=== PATIENT | male | born 1935 | race Caucasian/White ===

== ENCOUNTER 2017-07-11 18:08 | Emergency (ER) | payer MEDICARE ==
[2017-07-11 18:52] LABS: #Eosinphils 0.3 thou/uL (0.0-0.7); #Lymphocytes 1.2 thou/uL (1.20-3.40); #Monocytes 0.6 thou/uL (0.11-0.59); #Neutrophils 5.6 thou/uL (1.40-6.50); %Basophils 0.5 % (0.0-1.0); %Eosinophils 3.4 % (0.0-10.0); %Monocytes 7.7 % (0.0-10.0); %Neutrophils 72.4 % (42.0-75.0); Hemoglobin 11.3 g/dL (14.0-18.0); Mean Corpuscular HGB CONC 33.5 g/dL (32.0-36.0); Mean Corpuscular Hemoglobin 29.9 pg (27.0-31.0); Mean Corpuscular Volume 89.3 fl (80.0-94.0); Mean Platelet Volume 7.4 fL (7.4-10.4); Platelet Count 149 thou/uL (130-400); RBC Distribution Width 13.2 % (11.5-14.5); Red Blood Cell (RBC) Count 3.78 mill/uL (4.70-6.10); White Blood Cell (WBC) Count 7.7 thou/uL (4.8-10.8)
[2017-07-11 19:12] LABS: ALT (SGPT) 18 U/L (8-55); AST (SGOT) 20 U/L (5-34); Albumin 4.3 g/dL (3.4-4.8); Alkaline Phosphatase 43 U/L (40-150); Anion Gap 12 mmol/L (10-20); BUN (Urea Nitrogen) 21 mg/dL (8.4-25.7); Bilirubin, Total 0.6 mg/dL (0.2-1.2); CK (CPK) 246 U/L (30-200); Calc. Creatinine Clearance 0 mL/min (70-130); Calcium 10.1 mg/dL (7.8-10.44); Carbon Dioxide 26 mmol/L (23-31); Chloride 106 mmol/L (98-107); Estimated GFR-MDRD 42; Globulin 2.4 g/dL (2.4-3.5); Glucose 90 mg/dL (83-110); Potassium 4.1 mmol/L (3.5-5.1); Protein, Total 6.7 g/dL (5.8-8.1); Sodium 140 mmol/L (136-145)
[2017-07-11 19:16] LABS: Troponin I 0.021 ng/mL (< 0.028)
[2017-07-11] MEDS ORDERED: HYDROcodone/Acetaminophen 5/325 mg Tablet ONE (19:19)
[2017-07-11 19:21] LABS: CKMB 7.6 ng/mL (0-6.6)
--- NOTE | 2017-07-11 19:22 | CT ---
NONCONTRAST CT HEAD 07/11/17 HISTORY: Injury after a fall. Patient lost balance and fell on concrete. COMPARISON: None available. FINDINGS: There is cerebral volume loss. Ventricular system is normal in size, shape, and position for the degr ee of sulcal atrophy. Mild chronic small vessel ischemic changes are present. There is no evidence of acute cortical infarction, hemorrhage, mass effect or midline shift. The visualized paranasal sinuse s and mastoid air cells are clear. No calvarial fracture is visualized. IMPRESSION: No acute intracranial abnormalities demonstrated. POS: SAMANTHA
--- NOTE | 2017-07-11 19:27 | CT ---
CT CERVICAL SPINE WITHOUT CONTRAST: 07/11/17 HISTORY: Trauma. Fall. Patient lost balance and hit concrete. Posttraumatic pain. COMPARISON: None. TECHNIQUE: Cervical spine CT is performed without contrast. Reformatted images are submitted for interpretation. FINDINGS: There is appropriate atlanto-occipital condylar articulation. Lateral masses of C1 and C2 and the fac ets also articulate appropriately. Odontoid process is intact. No malalignment on the sagittal reformatted images. Extensive osteophyte formation throughout the cer vical spine. No prevertebral soft tissue swelling. No epidural hematoma. There are varying degrees of central canal stenosis and foraminal narrowing on the basis of degenerat hetal change. Atherosclerosis of the carotid arteries is identified. Upper mediastinum and lung apices are unremarkable. There are varying degrees of central canal stenosis and foraminal narrowing on the basis of degenerative change. Evaluation is limited by technique. IMPRESSION: No cervical spine fracture. POS: PPP
--- NOTE | 2017-07-11 19:29 | RAD ---
FOUR VIEWS LEFT KNEE: 07/11/17 HISTORY: Fall. Pain. COMPARISON: None. FINDINGS: There is a suprapatellar effusion. Joint spaces are preserved. There is a lucency involving the infer ior aspect of the patella. A nondisplaced patella fracture is suspected. Earth view may be benefici al. IMPRESSION: Nondisplaced patella fracture. POS: PPP
--- NOTE | 2017-07-11 19:37 | CT ---
CT THORAX WITHOUT IV CONTRAST: 07/11/17 HISTORY: Left chest wall pain after a fall. 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 A triple lead left subclavian AICD device is noted in place with RA, RV, and coronary sinus leads present. Vascular calcifications are see in the coronary arteries as well as involving the thoracic aorta. The thoracic aorta is normal in caliber. Mediastin al structures have a normal appearance and there is no evidence of a mediastinal hematoma or fluid. Calcified mediastinal and right hilar lymph nodes are seen related to prior granulomatous disease. Th ere is mild atelectasis present at each lung base. There is no pleural effusion or pneumothorax. No p ulmonary nodule or mass is seen. There is a low density area seen at the level of the rome near the origin of the right main stem br onchus which may be related to secretions. Visualized upper abdomen demonstrates a left adrenal nodule measuring 2 cm which does not demonstrate an attenuation coefficient consistent with an adrenal adenoma. Right adrenal gland has a normal none nhanced CT appearance. There are subcentimeter hypodense lesions in the left kidney, one of which is incompletely imaged, bu t these hypodense lesions do demonstrate fluid attenuation suggesting cysts, larges measuring 3.2 cm. Cysts were seen within the left kidney on prior ultrasound exam in 2008. Calcified granulomata are seen in the spleen. There is colonic diverticulosis seen at the splenic flexure. Degenerative changes are noted in the spine. IMPRESSION: 1. Left adrenal nodule which cannot be characterized as an adrenal adenoma. A follow up CT scan of the abdomen following adrenal mass protocol with washout imaging is recommended for further charac terization. 2. No acute findings are seen in the chest. 3. Hypodense left renal lesions likely related to cysts. Cysts were seen in the left kidney on p rior ultrasound exam in 2008. POS: SLIME
[2017-07-11 19:56] LABS: Bilirubin Negative (Negative); Blood, Urine Negative (Negative); Clarity CLEAR (Clear); Glucose, Urine (Dipstick) Negative (Negative); Leukocyte Negative (Negative); Nitrite Negative (Negative); Protein, Urine (Dipstick) Negative (Neg-Trace); Specific Gravity, Urine 1.018 (1.002-1.036)
--- NOTE | 2017-07-11 19:57 | RAD ---
TWO VIEWS LEFT HIP: 07/11/17 HISTORY: Patient lost balance and fell on concrete. Injury after a fall. Left knee pain. FINDINGS: No fracture or dislocation is seen involving the left hip. 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 IMPRESSION: No acute osseous abnormality. POS: SLIME
--- NOTE | 2017-07-11 22:07 | RAD ---
SINGLE SUNRISE VIEW LEFT KNEE: 07/11/17 HISTORY: Left knee pain and swelling. COMPARISON: Views of the left knee on 07/11/17 at 1907 hours. FINDINGS: As noted on views of the left knee, there is irregularity involving the medial patellar facet posteri quentin with lucency seen just to the right of midline anteriorly involving the patella. The findings ar e most consistent with a nondisplaced but slightly fracture involving the patella. There is overlying subcutaneous soft tissue swelling. IMPRESSION: Fracture left patella with overlying soft tissue swelling. POS: SLIME
--- NOTE | 2017-07-26 01:11 | EKG ---
Test Reason : Blood Pressure : / mmHG Vent. Rate : 080 BPM Atrial Rate : 079 BPM P-R Int : 000 ms QRS Dur : 166 ms QT Int : 444 ms P-R-T Axes : 000 012 -22 degrees QTc Int : 512 ms Electronic ventricular pacemaker Confirmed by SHITAL LEON ([id number]), newspaper copy editor KALPANA FRIED ([id number]) on 07/26/2017 1:11:13 AM Referred By: Confirmed By:SHITAL LEON
== END 2017-07-12 00:12 | disposition home or self-care (01) ==
LOC: ERS 18:08
DX: S82.002A Unspecified fracture of left patella, initial encounter for closed fracture (principal); I48.91 Unspecified atrial fibrillation; E78.5 Hyperlipidemia, unspecified; I11.0 Hypertensive heart disease with heart failure; I50.9 Heart failure, unspecified; Z87.891 Personal history of nicotine dependence; Z79.891 Long term (current) use of opiate analgesic; Z79.899 Other long term (current) drug therapy; Z79.01 Long term (current) use of anticoagulants; W19.XXXA Unspecified fall, initial encounter
CPT/HCPCS: 36415; 70450; 71250; 72125; 80053; 81003; 82550; 82553; 84484; 85025; 87086; 93005

== ENCOUNTER 2018-04-29 04:23 | Emergency (ER) | payer MEDICARE ==
[2018-04-29 04:48] LABS: #Eosinphils 0.2 thou/uL (0.0-0.7); #Lymphocytes 1.1 thou/uL (1.20-3.40); #Monocytes 0.3 thou/uL (0.11-0.59); #Neutrophils 2.6 thou/uL (1.40-6.50); %Eosinophils 4.2 % (0.0-10.0); %Lymphocytes 25.7 % (21.0-51.0); %Monocytes 8.1 % (0.0-10.0); %Neutrophils 61.1 % (42.0-75.0); Hemoglobin 10.6 g/dL (14.0-18.0); Mean Corpuscular HGB CONC 31.8 g/dL (32.0-36.0); Mean Corpuscular Hemoglobin 28.3 pg (27.0-31.0); Mean Corpuscular Volume 89.1 fL (78.0-98.0); Mean Platelet Volume 8.2 fL (7.4-10.4); Platelet Count 122 thou/uL (130-400); RBC Distribution Width 13.8 % (11.5-14.5); Red Blood Cell (RBC) Count 3.74 mill/uL (4.70-6.10); White Blood Cell (WBC) Count 4.2 thou/uL (4.8-10.8)
[2018-04-29] MEDS ORDERED: Lidocaine Viscous Sol 2% 15 ml UD Cup ONE (05:03)
[2018-04-29] MEDS ORDERED: Milk Of Magnesia 30 ML UDCUP ONE (05:03)
[2018-04-29] MEDS ORDERED: Nitroglycerin 0.4 MG TAB (25 Tab Bottle) ONE (05:03)
[2018-04-29 05:07] LABS: INR-International Normal Ratio 1.4; PTT 40.5 SEC (22.9-36.1); Prothrombin Time 17.4 SEC (12.0-14.7)
[2018-04-29 05:11] LABS: ALT (SGPT) 18 U/L (8-55); AST (SGOT) 28 U/L (5-34); Albumin 4.1 g/dL (3.4-4.8); Alkaline Phosphatase 51 U/L (40-150); Anion Gap 12 mmol/L (10-20); BUN (Urea Nitrogen) 23 mg/dL (8.4-25.7); Bilirubin, Total 0.9 mg/dL (0.2-1.2); CK (CPK) 128 U/L (30-200); Calc. Creatinine Clearance 0 mL/min (70-130); Calcium 10.2 mg/dL (7.8-10.44); Carbon Dioxide 22 mmol/L (23-31); Chloride 106 mmol/L (98-107); Estimated GFR-MDRD 32; Globulin 2.3 g/dL (2.4-3.5); Glucose 140 mg/dL (83-110); Potassium 3.9 mmol/L (3.5-5.1); Protein, Total 6.4 g/dL (5.8-8.1); Sodium 136 mmol/L (136-145)
--- NOTE | 2018-04-29 08:08 | CT ---
PRELIMINARY REPORT/[facility]/EMERGENTY AFTER-HOURS PROCEDURE CT Abdomen and Pelvis Without Contrast EXAM DATE/TIME: 04/29/2018 6:25 AM CLINICAL HISTORY: 82 years old, male; Pain; Abdominal pain; Epigastric; Additional info: H/o chf, afib and HTN, m82 pre sents to the ed C/O cp onset 02: 30 after eating. Reports typical indigestion usually comes and goes but states this pain has been constant. PT describes symptoms like pressure. Associated with weakness. Denies SOB, n/v, diaphoresis. Reports HX of x3 mi, possible stents placed but PT. Is not ce rtain. PT. Denies taking nitro at home. TECHNIQUE: Axial computed tomography images of the abdomen and pelvis without contrast. Coronal reformatted images were created and reviewed. COMPARISON: No relevant prior studies available. FINDINGS: Lower thorax: There is a small hiatal hernia. ABDOMEN: Liver: Normal. No mass. Gallbladder and bile ducts: There is a small amount of calcified sludge in the gallbladder. No inflam matory changes to the gallbladder. Pancreas: The pancreas is atrophic. The pancreas is otherwise without acute change or focal lesion. Spleen: Normal. No splenomegaly. Adrenals: There is a 2.2 cm left adrenal nodule. This most likely represents an adenoma. The right ad renal gland is normal. Kidneys and ureters: There are 2 renal cortical cysts on the left. The larger cyst measures 3.6 cm. T he kidneys are otherwise unremarkable. No stones or hydronephrosis. Stomach and bowel: There are diverticula of the descending and sigmoid colon. No associated inflammat ory changes. The intestine is otherwise unremarkable. No inflammatory change. No obstruction. Appendix: No evidence of appendicitis. PELVIS: Bladder: Unremarkable as visualized. Reproductive: The prostate gland measures 6.0 cm in greatest transverse dimension. The prostate gland impinges into the posterior wall of the urinary bladder. ABDOMEN and PELVIS: Intraperitoneal space: Normal. No free air. No significant fluid collection. Bones/joints: No acute fracture. No dislocation. Soft tissues: Unremarkable. Vasculature: There is a 4.0 cm abdominal aortic aneurysm. No leak or rupture. There is diffuse aneury smal dilatation of the right common iliac artery. It measures 1.7 cm. Lymph nodes: Normal. No enlarged lymph nodes. IMPRESSION: 1. Gallbladder sludge without evidence of cholecystitis. If clinical concern remains, further evaluat ion with ultrasound might be helpful. 2. Colonic diverticula without diverticulitis. 3. Enlarged prostate gland with impingement into the urinary bladder. 4. Small left adrenal adenoma. 5. 4.0 cm abdominal aortic aneurysm. 6. 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 Thank you for allowing us to participate in the care of your patient. Dictated and Authenticated by: Zeeshan Mascorro MD 04/29/2018 7:17 AM Central Time ([place] & [place]) FINAL REPORT CT ABDOMEN AND PELVIS: Date: 04/29/18 FINDINGS/IMPRESSION: I agree with the preliminary report provided by [email or web address]. 1. There is layered sludge and stones within the gallbladder, with mild distention. Recommend correl ation for acute cholecystitis. Right upper quadrant ultrasound may be helpful. 2. Other chronic findings as above. POS: SAMANTHA
--- NOTE | 2018-04-29 08:27 | RAD ---
CHEST 1 VIEW: INDICATION: Chest pain. COMPARISON: Prior study dated June 22, 2015. FINDINGS: Post CABG change and AICD are unchanged. Mild cardiomegaly is stable. Lungs are clear. No pleural effusion is evident. No acute osseous abnormality is noted. IMPRESSION: No acute cardiopulmonary abnormality. POS: SLIME
--- NOTE | 2018-05-01 23:30 | EKG ---
Test Reason : Blood Pressure : / mmHG Vent. Rate : 082 BPM Atrial Rate : 082 BPM P-R Int : 080 ms QRS Dur : 148 ms QT Int : 442 ms P-R-T Axes : 000 -48 -45 degrees QTc Int : 516 ms AV sequential or dual chamber electronic pacemaker Confirmed by GEORGE MONTOYA DO ([id number]), photographic editor KALPANA FRIED ([id number]) on 05/01/2018 11:29:34 PM Referred By: Confirmed By:GEORGE MONTOYA DO
== END 2018-04-29 10:06 | disposition home or self-care (01) ==
LOC: ERS 04:23
DX: R07.89 Other chest pain (principal); I13.0 Hypertensive heart and chronic kidney disease with heart failure and stage 1 through stage 4 chronic kidney disease, or unspecified chronic kidney disease; I50.9 Heart failure, unspecified; N17.9 Acute kidney failure, unspecified; N18.9 Chronic kidney disease, unspecified; I48.91 Unspecified atrial fibrillation; Z87.891 Personal history of nicotine dependence; E78.5 Hyperlipidemia, unspecified; Z79.899 Other long term (current) drug therapy; Z79.891 Long term (current) use of opiate analgesic; Z79.01 Long term (current) use of anticoagulants
CPT/HCPCS: 71045; 74176; 80053; 82550; 83690; 84443; 84484; 85025; 85610; 85730; 93005

== ENCOUNTER 2018-08-09 08:01 | Outpatient (CLI) | payer MEDICARE ==
--- NOTE | 2018-08-09 09:06 | ULT ---
BILATERAL RENAL ULTRASOUND: Date: 08/09/18 HISTORY: Left renal cyst. CORRELATION: CT scan of 04/29/18. COMPARISON: 05/16/08. FINDINGS: The right kidney measures 11.2 cm in length and the left kidney measures 11.7 cm in length. No hydron ephrosis is seen on either side. There are multiple cysts in the left kidney, the largest is in the s uperior pole measuring 3.4 x 2.5 x 3.2 cm. There is another cyst in the lateral aspect of the left ki dney measuring 2.4 x 2.0 x 2.5 cm. No hydronephrosis is seen on either side. No shadowing calculi are identified. The urinary bladder is unremarkable with a prominent prostate posteriorly measuring 2.0 x 1.9 x 2.4 c m. IMPRESSION: 1. Left renal cysts. 2. Prostatic enlargement. POS: TPC
== END 2018-08-09 08:02 | disposition home or self-care (01) ==
LOC: ULT 08:01
PROVIDERS: ATTEND Urology
DX: N28.1 Cyst of kidney, acquired (principal); N40.0 Benign prostatic hyperplasia without lower urinary tract symptoms
CPT/HCPCS: 76770

== ENCOUNTER 2019-02-17 13:52 | Emergency (ER) | payer MEDICARE ==
[2019-02-17 14:54] LABS: Bilirubin Negative (Negative); Blood, Urine Large (Negative); Glucose, Urine (Dipstick) Negative (Negative); Leukocyte Negative (Negative); Nitrite Negative (Negative); Protein, Urine (Dipstick) 100 mg/dL (Neg-Trace); Urobilinogen 0.2 mg/dL (Less than 2)
[2019-02-17 14:55] LABS: #Eosinphils 0.3 thou/uL (0.0-0.7); #Lymphocytes 1.2 thou/uL (1.20-3.40); #Monocytes 0.4 thou/uL (0.11-0.59); %Basophils 0.6 % (0.0-1.0); %Lymphocytes 24.3 % (21.0-51.0); %Neutrophils 60.2 % (42.0-75.0); Hemoglobin 11.2 g/dL (14.0-18.0); Mean Corpuscular HGB CONC 33.8 g/dL (32.0-36.0); Mean Corpuscular Hemoglobin 29.9 pg (27.0-31.0); Mean Corpuscular Volume 88.4 fL (78.0-98.0); Mean Platelet Volume 8.1 fL (7.4-10.4); Platelet Count 128 thou/uL (130-400); RBC Distribution Width 13.5 % (11.5-14.5); Red Blood Cell (RBC) Count 3.76 mill/uL (4.70-6.10)
[2019-02-17 15:00] LABS: INR-International Normal Ratio 2.1; PTT 42.9 SEC (22.9-36.1); Prothrombin Time 23.7 SEC (12.0-14.7)
[2019-02-17 15:00] LABS: Clarity Turbid (Clear)
[2019-02-17 15:01] LABS: RBC/HPF Greater than 50 HPF (0-3); Squamous Epithelial 0-3 HPF (0-3)
[2019-02-17 15:02] LABS: Bacteria/HPF None Seen HPF (None Seen)
[2019-02-17 15:15] LABS: ALT (SGPT) 14 U/L (8-55); AST (SGOT) 17 U/L (5-34); Albumin 4.5 g/dL (3.4-4.8); Alkaline Phosphatase 46 U/L (40-110); Anion Gap 12 mmol/L (10-20); BUN (Urea Nitrogen) 22 mg/dL (8.4-25.7); Bilirubin, Total 0.6 mg/dL (0.2-1.2); Calc. Creatinine Clearance 0 mL/min (70-130); Calcium 10.6 mg/dL (7.8-10.44); Carbon Dioxide 28 mmol/L (23-31); Chloride 103 mmol/L (98-107); Estimated GFR-MDRD 40; Globulin 2.6 g/dL (2.4-3.5); Glucose 86 mg/dL (83-110); Potassium 4.6 mmol/L (3.5-5.1); Protein, Total 7.1 g/dL (5.8-8.1); Sodium 138 mmol/L (136-145)
--- NOTE | 2019-02-17 17:30 | CT ---
CT OF THE ABDOMEN AND PELVIS WITH AND WITHOUT IV CONTRAST INDICATION: Hematuria TECHNIQUE: Noncontrast CT of the abdomen and pelvis was performed. Postcontrast images were obtained in the nephrographic phase and delayed phase. Axial and coronal reformatted images were constructed from the raw data. COMPARISON: CT abdomen and pelvis without contrast dated March 11, 2006 and April 29, 2018 FINDINGS: ABDOMEN: Lung bases: Mild bibasilar scarring Liver: No focal lesion. Gallbladder: Layered gallstones Pancreas: Normal. Adrenal glands: Stable left adrenal adenoma. Right adrenal gland is normal-appearing. Spleen: Calcified granuloma Kidneys and ureters: No focal right renal lesion. There is a 1.2 cm superior pole left renal cyst. Sm all suspected subcentimeter cyst is also present within the superior pole. Exophytic 3.7 cm left mid renal cyst. 2.7 cm inferior pole left renal cyst. No hydronephrosis. No renal or ureteral calculu s. Segmentally opacified renal collecting systems demonstrate no gross urothelial abnormality. Vasculature: Stable infrarenal abdominal aortic aneurysm measuring 3.8 cm. 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 Lymph nodes:No lymphadenopathy. Free fluid in abdomen:No free fluid is evident. PELVIS: Small and large bowel: Colonic diverticulosis. Appendix:Normal Bladder: Moderately distended. No gross intraluminal lesions. Rectal and perirectal soft tissues:Normal. Reproductive structures: Structures prostate enlargement measuring 5.3 cm. Free fluid in pelvis: No free fluid is evident. Lymphadenopathy pelvis: No lymphadenopathy is evident. Osseous structures: No acute osseous abnormality is demonstrated. There is stable mild compression ab normality at T12. There is scattered degenerative and osteoarthritic changes. Soft tissues:Normal. IMPRESSION: 1. No solid renal lesion or gross urothelial lesion identified. There is moderate distention of the b ladder. There are left renal cysts. 2. Cholelithiasis 3. Stable infrarenal abdominal aortic aneurysm and right common iliac artery aneurysm. 4. Prostate enlargement 5. Stable mild compression abnormality at T12.
== END 2019-02-17 17:52 | disposition home or self-care (01) ==
LOC: ERS 13:52
DX: R31.9 Hematuria, unspecified (principal); I11.0 Hypertensive heart disease with heart failure; I50.9 Heart failure, unspecified; I48.91 Unspecified atrial fibrillation; E78.5 Hyperlipidemia, unspecified; E78.00 Pure hypercholesterolemia, unspecified; Z87.891 Personal history of nicotine dependence; Z79.01 Long term (current) use of anticoagulants; Z79.899 Other long term (current) drug therapy
CPT/HCPCS: 36415; 74178; 80053; 81003; 81015; 85025; 85610; 85730; 87077; 87086

== ENCOUNTER 2019-06-26 22:41 | Emergency (ER) | payer MEDICARE ==
[~2019-06-26 22:41] MED LIST: Iopamidol-370 76% 500 ML 1 ML ONE
[2019-06-26 23:31] LABS: #Eosinphils 0.2 thou/uL (0.0-0.7); #Lymphocytes 1.2 thou/uL (1.20-3.40); #Monocytes 0.4 thou/uL (0.11-0.59); #Neutrophils 3.1 thou/uL (1.40-6.50); %Basophils 0.8 % (0.0-1.0); %Eosinophils 3.7 % (0.0-10.0); %Monocytes 7.5 % (0.0-10.0); %Neutrophils 64.1 % (42.0-75.0); Hemoglobin 11.2 g/dL (14.0-18.0); Mean Corpuscular HGB CONC 33.4 g/dL (32.0-36.0); Mean Corpuscular Hemoglobin 29.8 pg (27.0-31.0); Mean Corpuscular Volume 89.3 fL (78.0-98.0); Mean Platelet Volume 8.2 fL (7.4-10.4); Platelet Count 118 thou/uL (130-400); RBC Distribution Width 13.2 % (11.5-14.5); Red Blood Cell (RBC) Count 3.77 mill/uL (4.70-6.10); White Blood Cell (WBC) Count 4.9 thou/uL (4.8-10.8)
[2019-06-26 23:36] LABS: INR-International Normal Ratio 1.8; PTT 38.6 SEC (22.9-36.1); Prothrombin Time 20.4 SEC (12.0-14.7)
[2019-06-26] MEDS ORDERED: Morphine 4 MG/ML VIAL ONE (23:56)
[2019-06-26] MEDS ORDERED: Acetaminophen 500 MG TAB ONE (23:57)
[2019-06-27] LABS: ALT (SGPT) 18 U/L (8-55); AST (SGOT) 18 U/L (5-34); Albumin 4.4 g/dL (3.4-4.8); Alkaline Phosphatase 45 U/L (40-110); Anion Gap 11 mmol/L (10-20); BUN (Urea Nitrogen) 21 mg/dL (8.4-25.7); Bilirubin, Total 0.6 mg/dL (0.2-1.2); CK (CPK) 168 U/L (30-200); Calc. Creatinine Clearance 0 mL/min (70-130); Calcium 10.4 mg/dL (7.8-10.44); Carbon Dioxide 25 mmol/L (23-31); Chloride 108 mmol/L (98-107); Estimated GFR-MDRD 50; Globulin 2.2 g/dL (2.4-3.5); Glucose 103 mg/dL (83-110); Potassium 4.2 mmol/L (3.5-5.1); Protein, Total 6.6 g/dL (5.8-8.1); Sodium 140 mmol/L (136-145)
[2019-06-27 01:42] LABS: Bilirubin Negative (Negative); Blood, Urine Negative (Negative); Clarity Clear (Clear); Glucose, Urine (Dipstick) Normal (Negative); Leukocyte Negative Leu/uL (Negative); Nitrite Negative (Negative); Protein, Urine (Dipstick) Negative (Neg-Trace); Urobilinogen Normal mg/dL (Less than 2)
--- NOTE | 2019-06-27 08:14 | CT ---
CT OF THE ABDOMEN AND PELVIS WITH IV CONTRAST: INDICATION: History of abdominal pain. COMPARISON: Prior CT of the abdomen and pelvis dated 02/17/2019 and 04/29/2018. FINDINGS: There is mild subsegmental atelectasis in both lower lobes. There is a tiny hiatal hernia. Nodule involving the left adrenal gland has been stable since the comparison in 2005 and is likely re lated to a benign adenoma. Right adrenal gland is normal appearing. There are calcified granulomas in the spleen. There are layered gallstones within the gallbladder. No focal hepatic lesion is evident. There are stable left renal cysts. No hydronephrosis is evident. No free fluid or enlarged lymph nodes are evident. There are a few mildly dilated fluid-filled loops of small bowel within the left upper quadrant of th e abdomen. There is scattered colonic diverticulosis. There is prostate enlargement. Chronic osseous changes are similar-appearing. IMPRESSION: 1. Mild fluid-filled loops of mildly prominent small bowel within the left upper quadrant suspicious for possible enteritis. 2. Stable chronic findings as above. POS: SAMANTHA
== END 2019-06-27 03:04 | disposition home or self-care (01) ==
LOC: ERS 22:41
DX: M54.5 Low back pain (principal); R79.1 Abnormal coagulation profile; I11.0 Hypertensive heart disease with heart failure; I50.9 Heart failure, unspecified; I48.91 Unspecified atrial fibrillation; E78.5 Hyperlipidemia, unspecified; E78.00 Pure hypercholesterolemia, unspecified; I25.2 Old myocardial infarction; I49.9 Cardiac arrhythmia, unspecified; Z79.899 Other long term (current) drug therapy; Z87.891 Personal history of nicotine dependence
CPT/HCPCS: 74177; 80053; 81003; 82550; 85025; 85610; 85730; 96374; J2270; Q9967

== ENCOUNTER 2020-10-07 17:05 | Emergency (ER) | payer MEDICARE | END 2020-10-07 17:40 | disposition home or self-care (01) | LOC: ERS 17:05 | DX: N48.1 Balanitis (principal); I11.0 Hypertensive heart disease with heart failure; I50.9 Heart failure, unspecified; I48.91 Unspecified atrial fibrillation; E78.5 Hyperlipidemia, unspecified; E78.00 Pure hypercholesterolemia, unspecified; I25.2 Old myocardial infarction; Z87.891 Personal history of nicotine dependence; Z79.01 Long term (current) use of anticoagulants; Z79.899 Other long term (current) drug therapy | CPT/HCPCS: 99283 ==

== ENCOUNTER 2020-12-07 10:42 | Outpatient (CLI) | payer MEDICARE ==
[2020-12-07 11:08] LABS: #Eosinphils 0.2 thou/uL (0.0-0.7); #Lymphocytes 0.6 thou/uL (1.20-3.40); #Monocytes 0.4 thou/uL (0.11-0.59); #Neutrophils 3.7 thou/uL (1.40-6.50); %Basophils 0.5 % (0.0-1.0); %Eosinophils 3.1 % (0.0-10.0); %Lymphocytes 11.8 % (21.0-51.0); %Monocytes 8.7 % (0.0-10.0); %Neutrophils 75.9 % (42.0-75.0); Hemoglobin 8.1 g/dL (14.0-18.0); Mean Corpuscular HGB CONC 32.5 g/dL (32.0-36.0); Mean Corpuscular Hemoglobin 27.5 pg (27.0-31.0); Mean Corpuscular Volume 84.6 fL (78.0-98.0); Mean Platelet Volume 7.7 fL (7.4-10.4); Platelet Count 141 thou/uL (130-400); RBC Distribution Width 14.1 % (11.5-14.5); Red Blood Cell (RBC) Count 2.93 mill/uL (4.70-6.10); White Blood Cell (WBC) Count 4.9 thou/uL (4.8-10.8)
[2020-12-07 11:33] LABS: Follow-up Hematology Comp? YES
== END 2020-12-07 10:43 | disposition home or self-care (01) ==
LOC: CT 10:42
PROVIDERS: ATTEND Nurse Practitioner Family
DX: R29.6 Repeated falls (principal)
CPT/HCPCS: 70450; 85025

== ENCOUNTER 2021-02-13 09:28 | Day surgery (SDC) | payer MEDICARE ==
[2021-02-13] MEDS ORDERED: Acetaminophen 500 MG TAB PO SCH (10:30)
[2021-02-13] MEDS ORDERED: diphenhydrAMINE 25 MG CAP PO SCH (10:30)
[2021-02-13] MEDS ORDERED: Sodium Chloride 0.9% 20 ML ONE (10:37)
[2021-02-13 16:27] VITALS: BP 115/71; TEMP 97.9
== END 2021-02-13 16:27 | disposition home or self-care (01) ==
LOC: ONC/OP 09:28
PROVIDERS: ATTEND Internal Medicine Hematology & Oncology
PROC: 30233N1 Transfusion of Nonautologous Red Blood Cells into Peripheral Vein, Percutaneous Approach (ICD-10-PCS; principal; 2021-02-13)
DX: D64.9 Anemia, unspecified (principal); D69.6 Thrombocytopenia, unspecified
CPT/HCPCS: 36430; 82607; 82668; 82728; 82746; 83540; 83550; 86850; 86900; 86901; P9016

== ENCOUNTER 2021-03-26 21:39 | Inpatient (IN) | payer MEDICARE ==
[2021-03-26 22:20] LABS: #Eosinphils 0.1 thou/uL (0.0-0.7); #Monocytes 0.4 thou/uL (0.11-0.59); #Neutrophils 3.6 thou/uL (1.40-6.50); %Basophils 0.6 % (0.0-1.0); %Eosinophils 2.6 % (0.0-10.0); %Lymphocytes 18.7 % (21.0-51.0); %Monocytes 6.8 % (0.0-10.0); %Neutrophils 71.3 % (42.0-75.0); Hemoglobin 7.2 g/dL (14.0-18.0); Mean Corpuscular Hemoglobin 26.8 pg (27.0-31.0); Mean Corpuscular Volume 83.5 fL (78.0-98.0); Mean Platelet Volume 7.6 fL (7.4-10.4); Platelet Count 215 thou/uL (130-400); RBC Distribution Width 17.5 % (11.5-14.5); Red Blood Cell (RBC) Count 2.68 mill/uL (4.70-6.10); White Blood Cell (WBC) Count 5.1 thou/uL (4.8-10.8)
[2021-03-26 22:34] LABS: INR-International Normal Ratio 1.3; Prothrombin Time 16.6 sec (12.0-14.7)
[2021-03-26 22:35] LABS: PTT 45.2 sec (22.9-36.1)
[2021-03-26 22:42] LABS: ALT (SGPT) 12 U/L (8-55); AST (SGOT) 17 U/L (5-34); Albumin 2.9 g/dL (3.4-4.8); Alkaline Phosphatase 76 U/L (40-110); Anion Gap 9 mmol/L (10-20); BUN (Urea Nitrogen) 17 mg/dL (8.4-25.7); Calc. Creatinine Clearance 0 mL/min (70-130); Calcium 10.4 mg/dL (7.8-10.44); Carbon Dioxide 32 mmol/L (23-31); Chloride 100 mmol/L (98-107); Globulin 3.9 g/dL (2.4-3.5); Glucose 114 mg/dL (83-110); Potassium 3.8 mmol/L (3.5-5.1); Protein, Total 6.8 g/dL (5.8-8.1); Sodium 137 mmol/L (136-145)
[2021-03-26 22:57] LABS: Bilirubin Negative (Negative); Blood, Urine Negative (Negative); Clarity Clear (Clear); Glucose, Urine (Dipstick) Normal (Negative); Ketone, Urine Negative (Negative); Leukocyte 250 Leu/uL (Negative); Nitrite Negative (Negative); Protein, Urine (Dipstick) Negative (Neg-Trace); RBC/HPF 0-3 HPF (0-3); Specific Gravity, Urine 1.016 (1.002-1.036); Squamous Epithelial None Seen HPF (0-3); Urobilinogen 6 mg/dL (Less than 2)
[2021-03-26 22:58] LABS: Bacteria/HPF 2+ HPF (None Seen)
[2021-03-26] MEDS ORDERED: cefTRIAXone\\ROCEPHIN 1 GM VIAL ONE (23:40)
[2021-03-27] MEDS ORDERED: Ketorolac Tromethamine 30 MG/ML VIAL ONE (00:04)
[2021-03-27 01:49] VITALS: BMI 24.0
[2021-03-27] MEDS ORDERED: Acetaminophen 325 MG TAB PO PRN (02:00)
[2021-03-27] MEDS ORDERED: Ondansetron ODT 4 MG TAB SL PRN (02:00)
[2021-03-27] MEDS ORDERED: Ondansetron PF 4 MG/2 ML Vial IVP PRN (02:00)
[2021-03-27] MEDS ORDERED: Acetaminophen 650 MG Suppository PR PRN (02:25)
[2021-03-27] MEDS ORDERED: Sodium Chloride 0.9% 500 ML IV SCH (04:45)
[2021-03-27] MEDS ORDERED: Sodium Chloride 0.9% 1,000 ML IV SCH ×3 (05:00→17:15)
[2021-03-27 05:49] LABS: #Eosinphils 0.1 thou/uL (0.0-0.7); #Lymphocytes 0.8 thou/uL (1.20-3.40); #Monocytes 0.4 thou/uL (0.11-0.59); #Neutrophils 3.2 thou/uL (1.40-6.50); %Basophils 0.8 % (0.0-1.0); %Eosinophils 2.7 % (0.0-10.0); %Lymphocytes 18.2 % (21.0-51.0); %Monocytes 8.4 % (0.0-10.0); Hemoglobin 7.3 g/dL (14.0-18.0); Mean Corpuscular HGB CONC 31.9 g/dL (32.0-36.0); Mean Corpuscular Hemoglobin 27.3 pg (27.0-31.0); Mean Corpuscular Volume 85.4 fL (78.0-98.0); Mean Platelet Volume 7.3 fL (7.4-10.4); Platelet Count 199 thou/uL (130-400); RBC Distribution Width 17.3 % (11.5-14.5); Red Blood Cell (RBC) Count 2.69 mill/uL (4.70-6.10); White Blood Cell (WBC) Count 4.6 thou/uL (4.8-10.8)
[2021-03-27 06:06] LABS: Anion Gap 6 mmol/L (10-20); BUN (Urea Nitrogen) 17 mg/dL (8.4-25.7); Calc. Creatinine Clearance 59 mL/min (70-130); Calcium 10.1 mg/dL (7.8-10.44); Carbon Dioxide 31 mmol/L (23-31); Chloride 101 mmol/L (98-107); Glucose 89 mg/dL (83-110); Magnesium 1.4 mg/dL (1.6-2.6); Phosphorus 2.2 mg/dL (2.3-4.7); Potassium 3.7 mmol/L (3.5-5.1); Sodium 134 mmol/L (136-145)
[2021-03-27] MEDS ORDERED: Enoxaparin Sodium 40 MG/0.4 ML SYRINGE SC SCH (09:00)
[2021-03-27] MEDS ORDERED: Fenofibrate Nanocrystallized 145 MG TAB PO SCH ×2 (09:00)
[2021-03-27] MEDS ORDERED: Atorvastatin Calcium 40 MG TAB PO SCH (09:00)
[2021-03-27 09:11] LABS: Reticulocyte Count 1.7 % (0.5-1.5)
[2021-03-27 09:25] LABS: Iron 13 ug/dL (65-175); Iron Binding Capacity, Total 169 mcg/dL (261-462)
[2021-03-27] MEDS: Ezetimibe 10 MG TAB PO SCH (09:51)
[2021-03-27] MEDS ORDERED: Potassium Phosphate 30 MMOL in Sodium Chloride 0.9% 250 ML 250 ML IVPB SCH (10:00)
[2021-03-27] MEDS ORDERED: Magnesium Sulfate 4 GM in Sodium Chloride 0.9% 250 ML 250 ML IVPB SCH (10:00)
[2021-03-27] MEDS ORDERED: Pantoprazole 40 MG VIAL IVP SCH (12:45)
[2021-03-27] MEDS: Acetaminophen 325 MG TAB PO PRN (14:06)
[2021-03-27 14:43] LABS: SARS-CoV-2 PCR by NAA Not Detected (NotDetected)
[2021-03-27] MEDS: Escitalopram Oxalate 10 mg Tablet PO SCH (20:06)
[2021-03-27] MEDS: Cyanocobalamin (Vitamin B-12) 1,000 MCG TAB PO SCH (20:06)
[2021-03-27] MEDS: Folic Acid 1 MG TAB PO SCH (20:07)
[2021-03-27] MEDS: Finasteride 5 MG TAB PO SCH (20:07)
[2021-03-27] MEDS: Multivit, Therapeutic 1 TAB PO SCH (20:08)
[2021-03-28 05:28] LABS: #Eosinphils 0.1 thou/uL (0.0-0.7); #Monocytes 0.3 thou/uL (0.11-0.59); %Basophils 0.9 % (0.0-1.0); %Eosinophils 2.8 % (0.0-10.0); %Lymphocytes 21.3 % (21.0-51.0); %Monocytes 7.4 % (0.0-10.0); %Neutrophils 67.6 % (42.0-75.0); Hemoglobin 7.2 g/dL (14.0-18.0); Mean Corpuscular Hemoglobin 26.9 pg (27.0-31.0); Mean Corpuscular Volume 84.1 fL (78.0-98.0); Mean Platelet Volume 7.4 fL (7.4-10.4); Platelet Count 197 thou/uL (130-400); RBC Distribution Width 17.3 % (11.5-14.5); Red Blood Cell (RBC) Count 2.67 mill/uL (4.70-6.10); White Blood Cell (WBC) Count 4.4 thou/uL (4.8-10.8)
[2021-03-28 05:50] LABS: Anion Gap 9 mmol/L (10-20); BUN (Urea Nitrogen) 16 mg/dL (8.4-25.7); Calc. Creatinine Clearance 57 mL/min (70-130); Calcium 9.9 mg/dL (7.8-10.44); Carbon Dioxide 27 mmol/L (23-31); Chloride 103 mmol/L (98-107); Glucose 87 mg/dL (83-110); Potassium 4.3 mmol/L (3.5-5.1); Sodium 135 mmol/L (136-145)
[2021-03-28] MEDS ORDERED: PROPOFOL 200 MG/20 ML VIAL ONE (08:08)
[2021-03-28] MEDS ORDERED: GoLYTELY 4,000 ml Bottle PO SCH (08:30)
[2021-03-28] MEDS ORDERED: Pantoprazole 40 MG VIAL IVP SCH (09:00)
[2021-03-28] MEDS: Ezetimibe 10 MG TAB PO SCH (09:47)
[2021-03-28] MEDS: Acetaminophen 325 MG TAB PO PRN (09:58)
[2021-03-28] MEDS ORDERED: Furosemide 40 MG TAB PO SCH (13:00)
[2021-03-28] MEDS ORDERED: Potassium Chloride 20 MEQ TAB PO SCH (13:00)
[2021-03-28] MEDS: K-Phos Neutral 250 MG TAB PO SCH (17:55)
[2021-03-28] MEDS: Folic Acid 1 MG TAB PO SCH (21:09)
[2021-03-28] MEDS: Finasteride 5 MG TAB PO SCH (21:09)
[2021-03-28] MEDS: Multivit, Therapeutic 1 TAB PO SCH (21:09)
[2021-03-28] MEDS: Escitalopram Oxalate 10 mg Tablet PO SCH (21:09)
[2021-03-28] MEDS: Cyanocobalamin (Vitamin B-12) 1,000 MCG TAB PO SCH (21:09)
[2021-03-29 05:32] LABS: Hemoglobin 8.2 g/dL (14.0-18.0); Platelet Count 231 thou/uL (130-400)
[2021-03-29 05:49] LABS: Anion Gap 12 mmol/L (10-20); BUN (Urea Nitrogen) 15 mg/dL (8.4-25.7); Calc. Creatinine Clearance 60 mL/min (70-130); Calcium 10.4 mg/dL (7.8-10.44); Carbon Dioxide 25 mmol/L (23-31); Chloride 102 mmol/L (98-107); Glucose 79 mg/dL (83-110); Magnesium 1.8 mg/dL (1.6-2.6); Potassium 4.2 mmol/L (3.5-5.1); Sodium 135 mmol/L (136-145)
[2021-03-29] MEDS ORDERED: Electrolyte Replacement Protocol 1 EACH FS SCH (08:15)
[2021-03-29] MEDS: K-Phos Neutral 250 MG TAB PO SCH ×3 (08:24→16:43)
[2021-03-29] MEDS: Ezetimibe 10 MG TAB PO SCH (08:28)
[2021-03-29] MEDS ORDERED: Magnesium 2 GM/50 ML 2 GM in Premix Bag 1 BAG IVPB SCH (08:30)
[2021-03-29] MEDS ORDERED: Furosemide 20 MG TAB PO PRN (12:39)
[2021-03-29] MEDS ORDERED: Lidocaine 1% PF 5 ML VIAL ONE (12:44)
[2021-03-29] MEDS ORDERED: PROPOFOL 200 MG/20 ML VIAL ONE (12:44)
[2021-03-29] MEDS ORDERED: Sotalol HCl 80 MG TAB PO SCH (13:00)
[2021-03-29] MEDS ORDERED: Promethazine HCl 25 MG/ML VIAL IVPB PRN (14:05)
[2021-03-29] MEDS ORDERED: Promethazine HCl 25 MG/ML VIAL IM PRN (14:05)
[2021-03-29] MEDS ORDERED: Ondansetron HCl/PF 4 MG/2 ML Vial IVP PRN (14:05)
[2021-03-29] MEDS: Acetaminophen 325 MG TAB PO PRN (20:51)
[2021-03-29] MEDS: Multivit, Therapeutic 1 TAB PO SCH (20:52)
[2021-03-29] MEDS: Finasteride 5 MG TAB PO SCH (20:52)
[2021-03-29] MEDS: Escitalopram Oxalate 10 mg Tablet PO SCH (20:52)
[2021-03-29] MEDS: Folic Acid 1 MG TAB PO SCH (20:52)
[2021-03-29] MEDS: Cyanocobalamin (Vitamin B-12) 1,000 MCG TAB PO SCH (20:52)
[2021-03-29] MEDS: Sotalol HCl 80 MG TAB PO SCH (23:18)
[2021-03-30 05:24] LABS: Hemoglobin 8.2 g/dL (14.0-18.0); Platelet Count 248 thou/uL (130-400)
[2021-03-30] MEDS: Sotalol HCl 80 MG TAB PO SCH ×2 (09:26→21:07)
[2021-03-30] MEDS: Ezetimibe 10 MG TAB PO SCH (09:26)
[2021-03-30] MEDS: K-Phos Neutral 250 MG TAB PO SCH ×3 (09:26→16:29)
[2021-03-30] MEDS: Furosemide 40 MG TAB PO SCH (09:27)
[2021-03-30] MEDS ORDERED: Nitrofurantoin Monohyd/M-Cryst 100 MG CAP PO SCH (13:15)
[2021-03-30] MEDS: Folic Acid 1 MG TAB PO SCH (21:06)
[2021-03-30] MEDS: Cyanocobalamin (Vitamin B-12) 1,000 MCG TAB PO SCH (21:06)
[2021-03-30] MEDS: Nitrofurantoin Monohyd/M-Cryst 100 MG CAP PO SCH (21:07)
[2021-03-30] MEDS: Multivit, Therapeutic 1 TAB PO SCH (21:08)
[2021-03-30] MEDS: Escitalopram Oxalate 10 mg Tablet PO SCH (21:08)
[2021-03-30] MEDS: Finasteride 5 MG TAB PO SCH (21:08)
[2021-03-31] MEDS: Acetaminophen 325 MG TAB PO PRN ×4 (04:39→21:51)
[2021-03-31 05:38] LABS: #Eosinphils 0.2 thou/uL (0.0-0.7); #Lymphocytes 1.3 thou/uL (1.20-3.40); #Monocytes 0.4 thou/uL (0.11-0.59); #Neutrophils 3.3 thou/uL (1.40-6.50); %Basophils 0.4 % (0.0-1.0); %Eosinophils 3.7 % (0.0-10.0); %Lymphocytes 24.8 % (21.0-51.0); %Monocytes 6.9 % (0.0-10.0); %Neutrophils 64.1 % (42.0-75.0); Hemoglobin 8.5 g/dL (14.0-18.0); Mean Corpuscular HGB CONC 33.7 g/dL (32.0-36.0); Mean Corpuscular Hemoglobin 28.6 pg (27.0-31.0); Mean Corpuscular Volume 85.1 fL (78.0-98.0); Mean Platelet Volume 7.3 fL (7.4-10.4); Platelet Count 245 thou/uL (130-400); RBC Distribution Width 16.9 % (11.5-14.5); Red Blood Cell (RBC) Count 2.95 mill/uL (4.70-6.10); White Blood Cell (WBC) Count 5.1 thou/uL (4.8-10.8)
[2021-03-31 06:02] LABS: Anion Gap 10 mmol/L (10-20); BUN (Urea Nitrogen) 13 mg/dL (8.4-25.7); Calc. Creatinine Clearance 69 mL/min (70-130); Calcium 10.2 mg/dL (7.8-10.44); Carbon Dioxide 29 mmol/L (23-31); Chloride 97 mmol/L (98-107); Glucose 90 mg/dL (83-110); Potassium 3.7 mmol/L (3.5-5.1); Sodium 132 mmol/L (136-145)
[2021-03-31] MEDS: Nitrofurantoin Monohyd/M-Cryst 100 MG CAP PO SCH ×2 (09:02→21:38)
[2021-03-31] MEDS: K-Phos Neutral 250 MG TAB PO SCH ×4 (09:02→18:17)
[2021-03-31] MEDS: Furosemide 40 MG TAB PO SCH ×2 (09:02→18:24)
[2021-03-31] MEDS: Ezetimibe 10 MG TAB PO SCH (09:02)
[2021-03-31] MEDS: Sotalol HCl 80 MG TAB PO SCH ×2 (09:02→22:01)
[2021-03-31] MEDS ORDERED: Lidocaine 5% Patch TD SCH (14:00)
[2021-03-31] MEDS: Multivit, Therapeutic 1 TAB PO SCH (21:37)
[2021-03-31] MEDS: Finasteride 5 MG TAB PO SCH (21:38)
[2021-03-31] MEDS: Escitalopram Oxalate 10 mg Tablet PO SCH (21:38)
[2021-03-31] MEDS: Cyanocobalamin (Vitamin B-12) 1,000 MCG TAB PO SCH (21:38)
[2021-03-31] MEDS: Folic Acid 1 MG TAB PO SCH (21:38)
[2021-04-01] MEDS ORDERED: LACTINEX 1 TAB PO SCH (00:46)
[2021-04-01] MEDS ORDERED: metroNIDAZOLE 500 MG in Premix Bag 1 BAG IVPB SCH (00:50)
[2021-04-01] MEDS ORDERED: Transdermal Patch Removal TOP SCH (02:00)
[2021-04-01] MEDS: Acetaminophen 325 MG TAB PO PRN ×3 (02:08→18:12)
[2021-04-01] MEDS: Vancomycin 25 MG/ML Oral SOLN PO SCH ×4 (03:32→21:12)
[2021-04-01] MEDS ORDERED: Sodium Chloride 0.9% 250 ML IV SCH (04:15)
[2021-04-01 05:55] LABS: #Eosinphils 0.2 thou/uL (0.0-0.7); #Lymphocytes 0.9 thou/uL (1.20-3.40); #Monocytes 0.5 thou/uL (0.11-0.59); #Neutrophils 6.8 thou/uL (1.40-6.50); %Basophils 0.1 % (0.0-1.0); %Eosinophils 2.2 % (0.0-10.0); %Lymphocytes 11.2 % (21.0-51.0); %Monocytes 5.3 % (0.0-10.0); %Neutrophils 81.2 % (42.0-75.0); Hemoglobin 8.4 g/dL (14.0-18.0); Mean Corpuscular HGB CONC 31.5 g/dL (32.0-36.0); Mean Corpuscular Hemoglobin 27.1 pg (27.0-31.0); Mean Corpuscular Volume 86.2 fL (78.0-98.0); Mean Platelet Volume 6.8 fL (7.4-10.4); Platelet Count 260 thou/uL (130-400); RBC Distribution Width 16.7 % (11.5-14.5); Red Blood Cell (RBC) Count 3.08 mill/uL (4.70-6.10); White Blood Cell (WBC) Count 8.4 thou/uL (4.8-10.8)
[2021-04-01 06:20] LABS: Anion Gap 11 mmol/L (10-20); BUN (Urea Nitrogen) 11 mg/dL (8.4-25.7); Calc. Creatinine Clearance 74 mL/min (70-130); Calcium 10.1 mg/dL (7.8-10.44); Carbon Dioxide 25 mmol/L (23-31); Chloride 100 mmol/L (98-107); Glucose 95 mg/dL (83-110); Potassium 3.7 mmol/L (3.5-5.1); Sodium 132 mmol/L (136-145)
[2021-04-01] MEDS: Nitrofurantoin Monohyd/M-Cryst 100 MG CAP PO SCH (09:11)
[2021-04-01] MEDS: Ezetimibe 10 MG TAB PO SCH (09:11)
[2021-04-01] MEDS: K-Phos Neutral 250 MG TAB PO SCH ×3 (09:11→18:12)
[2021-04-01] MEDS: Sotalol HCl 80 MG TAB PO SCH ×2 (09:11→21:12)
[2021-04-01] MEDS: Famotidine 20 MG TAB PO SCH ×2 (09:11→21:12)
[2021-04-01] MEDS: Furosemide 40 MG TAB PO SCH (09:12)
[2021-04-01] MEDS: Saccharomyces boulardii 250 MG CAP PO SCH (11:28)
[2021-04-01] MEDS: Lidocaine 5% Patch TD SCH (17:00)
[2021-04-01] MEDS: Folic Acid 1 MG TAB PO SCH (21:12)
[2021-04-01] MEDS: Cyanocobalamin (Vitamin B-12) 1,000 MCG TAB PO SCH (21:12)
[2021-04-01] MEDS: Multivit, Therapeutic 1 TAB PO SCH (21:13)
[2021-04-01] MEDS: Finasteride 5 MG TAB PO SCH (21:13)
[2021-04-01] MEDS: Escitalopram Oxalate 10 mg Tablet PO SCH (21:13)
[2021-04-02] MEDS: Transdermal Patch Removal TOP SCH (00:50)
[2021-04-02] MEDS: Vancomycin 25 MG/ML Oral SOLN PO SCH ×4 (03:38→21:56)
[2021-04-02 05:53] LABS: #Eosinphils 0.2 thou/uL (0.0-0.7); #Lymphocytes 1.3 thou/uL (1.20-3.40); #Monocytes 0.4 thou/uL (0.11-0.59); #Neutrophils 6.2 thou/uL (1.40-6.50); %Basophils 0.5 % (0.0-1.0); %Eosinophils 2.3 % (0.0-10.0); %Lymphocytes 15.4 % (21.0-51.0); %Monocytes 5.1 % (0.0-10.0); %Neutrophils 76.8 % (42.0-75.0); Hemoglobin 8.2 g/dL (14.0-18.0); Mean Corpuscular HGB CONC 32.3 g/dL (32.0-36.0); Mean Corpuscular Hemoglobin 27.4 pg (27.0-31.0); Mean Corpuscular Volume 84.8 fL (78.0-98.0); Mean Platelet Volume 7.2 fL (7.4-10.4); Platelet Count 263 thou/uL (130-400); RBC Distribution Width 16.8 % (11.5-14.5); White Blood Cell (WBC) Count 8.1 thou/uL (4.8-10.8)
[2021-04-02] MEDS: Acetaminophen 325 MG TAB PO PRN ×2 (05:57→21:56)
[2021-04-02 06:12] LABS: Anion Gap 11 mmol/L (10-20); BUN (Urea Nitrogen) 11 mg/dL (8.4-25.7); Calc. Creatinine Clearance 68 mL/min (70-130); Calcium 9.9 mg/dL (7.8-10.44); Carbon Dioxide 27 mmol/L (23-31); Chloride 98 mmol/L (98-107); Glucose 82 mg/dL (83-110); Potassium 3.7 mmol/L (3.5-5.1); Sodium 132 mmol/L (136-145)
[2021-04-02] MEDS: Saccharomyces boulardii 250 MG CAP PO SCH (09:48)
[2021-04-02] MEDS: K-Phos Neutral 250 MG TAB PO SCH ×3 (09:48→17:58)
[2021-04-02] MEDS: Ezetimibe 10 MG TAB PO SCH (09:48)
[2021-04-02] MEDS: Furosemide 40 MG TAB PO SCH (09:48)
[2021-04-02] MEDS: Famotidine 20 MG TAB PO SCH ×2 (09:48→21:55)
[2021-04-02] MEDS: Sotalol HCl 80 MG TAB PO SCH ×2 (09:48→21:56)
[2021-04-02] MEDS: Lidocaine 5% Patch TD SCH (12:04)
[2021-04-02] MEDS: Multivit, Therapeutic 1 TAB PO SCH (21:57)
[2021-04-02] MEDS: Cyanocobalamin (Vitamin B-12) 1,000 MCG TAB PO SCH (21:57)
[2021-04-02] MEDS: Escitalopram Oxalate 10 mg Tablet PO SCH (21:57)
[2021-04-02] MEDS: Finasteride 5 MG TAB PO SCH (21:57)
[2021-04-02] MEDS: Folic Acid 1 MG TAB PO SCH (21:57)
[2021-04-03] MEDS: Transdermal Patch Removal TOP SCH (01:18)
[2021-04-03] MEDS: Vancomycin 25 MG/ML Oral SOLN PO SCH ×4 (03:01→21:11)
[2021-04-03] MEDS: Famotidine 20 MG TAB PO SCH ×2 (09:17→21:11)
[2021-04-03] MEDS: Saccharomyces boulardii 250 MG CAP PO SCH (09:17)
[2021-04-03] MEDS: Ezetimibe 10 MG TAB PO SCH (09:17)
[2021-04-03] MEDS: K-Phos Neutral 250 MG TAB PO SCH ×3 (09:17→16:13)
[2021-04-03] MEDS: Sotalol HCl 80 MG TAB PO SCH ×2 (09:17→21:10)
[2021-04-03] MEDS: Furosemide 40 MG TAB PO SCH (09:17)
[2021-04-03] MEDS: Acetaminophen 325 MG TAB PO PRN (11:53)
[2021-04-03] MEDS: Lidocaine 5% Patch TD SCH (11:53)
[2021-04-03] MEDS: Cyanocobalamin (Vitamin B-12) 1,000 MCG TAB PO SCH (21:10)
[2021-04-03] MEDS: Escitalopram Oxalate 10 mg Tablet PO SCH (21:10)
[2021-04-03] MEDS: Finasteride 5 MG TAB PO SCH (21:10)
[2021-04-03] MEDS: Multivit, Therapeutic 1 TAB PO SCH (21:10)
[2021-04-03] MEDS: Folic Acid 1 MG TAB PO SCH (21:11)
[2021-04-03 23:31] LABS: SARS-CoV-2 PCR by NAA Not Detected (NotDetected)
[2021-04-04] MEDS: Transdermal Patch Removal TOP SCH (02:00)
[2021-04-04] MEDS: Vancomycin 25 MG/ML Oral SOLN PO SCH ×2 (03:05→10:00)
[2021-04-04] MEDS ORDERED: Carvedilol 3.125 MG TAB PO SCH (08:00)
[2021-04-04] MEDS: K-Phos Neutral 250 MG TAB PO SCH ×2 (09:57→12:56)
[2021-04-04] MEDS: Ezetimibe 10 MG TAB PO SCH (09:58)
[2021-04-04] MEDS: Saccharomyces boulardii 250 MG CAP PO SCH (09:58)
[2021-04-04] MEDS: Famotidine 20 MG TAB PO SCH (09:58)
[2021-04-04] MEDS: Sotalol HCl 80 MG TAB PO SCH (09:58)
[2021-04-04] MEDS: Furosemide 40 MG TAB PO SCH (09:58)
[2021-04-04 12:36] VITALS: TEMP 97.8
[2021-04-04] MEDS: Lidocaine 5% Patch TD SCH (12:56)
[2021-04-04 13:23] VITALS: BP 107/40
== END 2021-04-04 15:30 | DRG 378 ==
LOC: ERS 21:39 → SJJU 03-27 00:05
PROVIDERS: ADMIT Student in an Organized Health Care Education/Training Program; ATTEND Internal Medicine
PROC: 0DB78ZX Excision of Stomach, Pylorus, Via Natural or Artificial Opening Endoscopic, Diagnostic (ICD-10-PCS; principal; 2021-03-28)
PROC: 0DB68ZX Excision of Stomach, Via Natural or Artificial Opening Endoscopic, Diagnostic (ICD-10-PCS; 2021-03-28)
PROC: 30233N1 Transfusion of Nonautologous Red Blood Cells into Peripheral Vein, Percutaneous Approach (ICD-10-PCS; 2021-03-28)
PROC: 0DJD8ZZ Inspection of Lower Intestinal Tract, Via Natural or Artificial Opening Endoscopic (ICD-10-PCS; 2021-03-29)
DX: K92.1 Melena (principal); D62 Acute posthemorrhagic anemia; N39.0 Urinary tract infection, site not specified; E87.1 Hypo-osmolality and hyponatremia; I50.42 Chronic combined systolic (congestive) and diastolic (congestive) heart failure; M87.852 Other osteonecrosis, left femur; A04.72 Enterocolitis due to Clostridium difficile, not specified as recurrent; Z66 Do not resuscitate; I48.91 Unspecified atrial fibrillation; E78.5 Hyperlipidemia, unspecified; E78.00 Pure hypercholesterolemia, unspecified; I11.0 Hypertensive heart disease with heart failure; G89.29 Other chronic pain; E83.42 Hypomagnesemia; E83.39 Other disorders of phosphorus metabolism; E87.6 Hypokalemia; F41.9 Anxiety disorder, unspecified; I08.3 Combined rheumatic disorders of mitral, aortic and tricuspid valves; N40.0 Benign prostatic hyperplasia without lower urinary tract symptoms; K64.8 Other hemorrhoids; D63.8 Anemia in other chronic diseases classified elsewhere; Z20.822 Contact with and (suspected) exposure to COVID-19; R53.81 Other malaise; K57.30 Diverticulosis of large intestine without perforation or abscess without bleeding; K29.80 Duodenitis without bleeding; I25.2 Old myocardial infarction; Z95.1 Presence of aortocoronary bypass graft; Z87.891 Personal history of nicotine dependence; Z95.810 Presence of automatic (implantable) cardiac defibrillator; Z79.82 Long term (current) use of aspirin; Z79.899 Other long term (current) drug therapy
CPT/HCPCS: 36415; 36430; 80048; 80053; 81003; 81015; 82274; 82550; 82607; 82728; 82746; 83540; 83550; 83605; 83735; 83880; 84100; 84484; 85014; 85018; 85025; 85046; 85049; 85610; 85730; 86850; 86900; 86901; 87045; 87046; 87324; 87427; 87449; 88305; 88342; 93005; 93306; 96365; 96375; C9113; J0696; J1885; J2704; J3475; J7030; J7050; P9016; U0003; U0005